=== PATIENT | male | born 1955 | race Caucasian/White ===

== ENCOUNTER 2019-07-14 07:35 | Day surgery (SDC) | payer MEDICARE ==
[2019-07-13 14:54] LABS: HEMATOCRIT 42.9 % (42.0-54.0); HEMOGLOBIN 14.5 g/dL (13.5-17.5); MCH 31.1 pg (26.0-34.0); MCHC 33.8 g/dL (31.0-37.0); MCV 92.1 fL (80.0-100.0); MEAN PLATELET VOLUME 10.7 fL (7.4-10.4); RBC 4.66 10x6/uL (4.20-6.10); WBC 5.8 10x3/uL (4.8-10.8)
[~2019-07-14] VITALS: Ht 180.3 cm; Wt 108.0 kg
[~2019-07-14 07:35] MED LIST: COZAAR25 MG PO; PROPAFENONE HC225 MG PO
[2019-07-14 08:26] VITALS: BP 148/81; Ht 180.3 cm; Wt 108.0 kg
--- NOTE | 2019-07-14 11:47 | OP ---
PATIENT NAME: BRONSON KIRBY MEDICAL RECORD: [id number] :53 LOCATION:[facility] ADMISSION DATE: SURGEON: DIMITRIOS PARSON MD DATE OF OPERATION: 07/14/2019 SURGEON: Dimitrios Parson MD ANESTHESIA: TIVA by Clarence Castro MD DIAGNOSIS: Bladder neck stenosis. PROCEDURE: UroLift times 6 units deployed, 4 held in box configuration around the bladder neck. FINDINGS: Obstructive bladder neck. ESTIMATED BLOOD LOSS: None. CLINICAL HISTORY: This is a 64-year-old male, who complains of a slow urinary stream for the past 4 years. This is especially a problem at night. He has an IPSS score of 5 and quality of life score of 3. He is taking saw palmetto to treat his prostate. His PSA is 0.7. On examination, he has a prostate about 30 grams in size and benign feeling. HE IS ALLERGIC TO LISINOPRIL. He was given Levaquin IV information security specialist to the OR. DESCRIPTION OF PROCEDURE: The patient was given IV sedation. He was placed into lithotomy position and prepped and draped. The UroLift scope was introduced. The primary source of obstruction was the bladder neck. No bladder tumors were seen. A 1.5 cm distal to the bladder neck all 4 units were placed. The first units were placed at the anterolateral sulcus with 1 unit on each side. On the right anterolateral sulcus, I had 2 units misfire and finally the third unit held. Then, at the mid urethral level, in terms of anterior to posterior distance, we placed 1 unit on each side. This completed the box and opened up the bladder neck widely. The bladder was left partly full with irrigation fluid. We will have a voiding trial today. I will see him in followup in 1 months' time. TRANSINT:[id number] Voice Confirmation ID: [id number] DOCUMENT ID: [id number] DIMITRIOS PARSON MD at 1147 CC: [id number] DICTATION DATE: 07/14/19 1025 COMMUNICATIONS ASSISTANT: 07/14/19 1137 [facility] [address] [place] [address]
--- NOTE | 2019-07-14 15:20 | NUR ---
1210 VOIDED 110 ML BERNAL RED URINE PER URINAL. Chelsea BRENNAN R.N. 1220 UP AMBUALTORY WITHOUT DIFFICULTY. TO BATHROOM UNABLE TO VOID @ THIS TIME. IV DC'ED WITH 450ML LTC. DRESSING. Chelsea BRENNAN R.N. 1235 AWAKE & ALERT, DRESSED. GIVEN DISCHARGE INFORMATION INCLUDING: MED REC, RTC APPT., [facility] D/C INSTRUCTIONS, & POST UROLIFT D/C INSTRUCTIONS. PT VOICED UNDERSTANDING. TO PRIVATE CAR PER STAFF. HOME WITH , JAYJAY KIRBY. Chelsea BRENNAN R.N.
== END 2019-07-14 12:35 | disposition home or self-care (01) ==
LOC: D.OPS 07:35
PROVIDERS: Anesthesiology; ATTEND Urology
DX: N32.0 Bladder-neck obstruction (principal); N40.1 Benign prostatic hyperplasia with lower urinary tract symptoms; R30.9 Painful micturition, unspecified